=== PATIENT | male | born 1975 | race Two or more races ===

== ENCOUNTER 2018-01-14 20:25 | Emergency (ER) | payer BC ==
[~2018-01-14] VITALS: Ht 167.6 cm; Wt 79.4 kg
== END 2018-01-15 01:24 | disposition home or self-care (01) ==
LOC: EDSEX 20:25 → ER 20:25 → EDBD 20:36 → ER 01-15 01:24
DX: R42 Dizziness and giddiness (principal); E86.0 Dehydration